=== PATIENT | male | born 1955 | race African-American/Black ===

== ENCOUNTER 2016-10-29 04:11 | Emergency (ER) | payer OTHER ==
[~2016-10-29] VITALS: Ht 177.8 cm; Wt 79.4 kg
[~2016-10-29 04:11] MED LIST: FLEXERIL 5MG TAB5 MG PO; NAPROXEN500 MG PO; NORCO 325 MG-51 TAB PO
--- NOTE | 2016-10-29 04:29 | ED NOSE COMPLAINT ---
History of Present Illness General Chief Complaint: General Adult Stated Complaint: NOSE BLEED FOR THE LAST 20 MIN Source: patient, family Exam Limitations: no limitations Vital Signs & Intake/Output Vital Signs & Intake/Output Vital Signs Date Time Temp Pulse Resp B/P Pulse O2 O2 Flow FiO2 Ox Delivery Rate 10/29 0431 150/100 10/29 0416 97.4 71 20 178/106 99 Room Air Allergies Coded Allergies: NO KNOWN ALLERGIES (06/05/11) Reconcile Medications Acetaminophen/Hydrocodone Bi ([place] 325 MG-5 MG) 1 TAB TAB 1 TAB PO Q6HR PRN BREAKTHROUGH PAIN Cyclobenzaprine (Flexeril 5MG Tab) 5 MG TAB 1 TAB PO TID PRN PAIN Naproxen 500 MG TAB 1 TAB PO BID PAIN Triage Nurses Notes Reviewed? yes HPI: Patient was driving when all of a sudden he felt like his nose is running. Patient states he wiped his nose and noticed that it was blood. Patient denies any pain.Has been continuing for the past 20 minutes. Patient has a history of hypertension but does not always take his medications. Patient denies any lightheadedness. There is no nausea or vomiting. There is no difficulty breathing. There is no chest pain. Past History Travel History Traveled to [place] past 21 day No Medical History Any Pertinent Medical History? see below for history Cardiovascular: hypertension, hyperlipidemia Surgical History Surgical History: non-contributory, N Psychosocial History What is your primary language Lao Tobacco Use: Never used ETOH Use: occasional use Illicit Drug Use: denies illicit drug use Family History Hx Contributory? No Review of Systems Review of Systems Constitutional: Reports: no symptoms. EENTM: Reports: see HPI, epistaxis. Respiratory: Reports: no symptoms. Cardiovascular: Reports: no symptoms. GI: Reports: no symptoms. Neurological/Psychological: Reports: no symptoms. Physical Exam Physical Exam General Appearance: well developed/nourished, alert, awake Head: atraumatic Eyes: Bilateral: PERRL, EOMI. Nose: active bleeding (FROM RIGHT ANTERIOR SEPTUM) Mouth/Throat: normal mouth inspection, pharynx normal Neck: normal inspection, supple, full range of motion Cardiovascular/Respiratory: normal breath sounds, normal peripheral pulses, regular rate/rhythm, no respiratory distress Neurologic/Psych: no motor/sensory deficits, awake, alert, oriented x 3, normal gait, normal mood/affect Progress Differential Diagnoses I considered the following diagnoses in my evaluation of the patient: [EPISTAXIS ] Plan of Care: Current Medications Sig/Adam Start time Last Medication Dose Stop Time Status Admin Thrombin 5,000 UNITS ONCE ONE 10/29 429 UNVr (Thrombin Bovine) 10/29 430 Initial ED EKG: none Comments: Patient advised of the importance of taking his blood pressure medication as prescribed. Patient ambulated in the emergency department without any rebleeding. Departure Departure Disposition: HOME OR SELF CARE Condition: Stable Clinical Impression Primary Impression: Epistaxis Secondary Impressions: Hypertension Referrals: UNKNOWN (PCP/Family) Additional Instructions: Do not blow your nose for 24 hours. Use saline nasal spray. Return if bleeding starts again and he unable to get to stop or for any concerns. Departure Forms: Customer Survey General Discharge Information Procedures Epistaxis/Nasal Foreign Body Status: bleeding Clots Cleared Nasal Passage: by patient blowing Inspected With: otoscope Bleeding Site: Right anterior septum Applied: Right: Other Anterior (THROMBIN).
[2016-10-29 05:12] VITALS: BP 164/99
== END 2016-10-29 05:19 ==
LOC: ERH 04:11
DX: R04.0 Epistaxis (principal); I10 Essential (primary) hypertension